=== PATIENT | female | born 1930 | race Caucasian/White ===

== ENCOUNTER 2017-07-19 12:21 | Inpatient (IN) | payer MEDICAID ==
[~2017-07-19] VITALS: Ht 157.5 cm; Wt 85.7 kg
[2017-07-19 12:42] VITALS: BP 143/84
--- NOTE | 2017-07-19 12:53 | NUR ---
Patient to bed 7 at this time by EMS.
[2017-07-19] MEDS ORDERED: MOM PO (12:54)
[2017-07-19] MEDS ORDERED: ACET-2869 PO (12:54)
[2017-07-19] MEDS ORDERED: MULT-1329 PO (12:54)
[2017-07-19] MEDS ORDERED: SENN-89 PO (12:54)
[2017-07-19] MEDS ORDERED: ACET-2208 PO (12:54)
[2017-07-19] MEDS ORDERED: NUTR30LI5 PO (12:54)
[2017-07-19] MEDS ORDERED: LEVO0.124 PO (12:54)
--- NOTE | 2017-07-19 12:54 | NUR ---
PATIENT PRESENTS TO ED WITH S/P FALL X2 DAYS AGO [place]ANN[place]. BILAT. HIP XR DONE IN THE FACILITY SHOWING RT. HIP DISLOCATION. ERMD MADE AWARE. LT. HIP WITH PROSTHESIS. HX OF [place],DEMENTIA,HYPOTHYROIDSM.DENIES N/V/D; SKIN IS PINK/WARM/DRY; AAOX4 WITH EVEN AND STEADY GAIT; LUNGS CLEAR BL; HR EVEN AND REGULAR; PT DENIES ANY FEVER, CP, SOB, OR COUGH AT THIS TIME; PATIENT STATES PAIN OF 8/10 AT THIS TIME;PATIENT POSITIONED FOR COMFORT;BEDRAILS UP X2; BED DOWN.ALL MONITORS IN PLACED; ER MD MADE AWARE OF PT STATUS.
--- NOTE | 2017-07-19 12:59 | NUR ---
PATIENT TAKEN TO XRAY VIA GURNEY AT THIS TIME.
[2017-07-19] MEDS ORDERED: PROPOFOL 200 MG/20 ML VIAL IV ONE (13:45)
--- NOTE | 2017-07-19 14:40 | NUR ---
RT AT BEDSIDE.
--- NOTE | 2017-07-19 14:50 | NUR ---
PROPOFOL WAS ADMINISTERED;PT AWAKE;RT/RN/CHARGE NURSE AND ERMD AT BEDSIDE;
--- NOTE | 2017-07-19 14:52 | NUR ---
PT WAS SEDATED;CLOSED REDUCTION OF RT HIP WAS DONE BY DR UGALDE;ALL MONITORS IN PLACED;NO ACUTE RESPIRATORY DISTRESS NOTED;
--- NOTE | 2017-07-19 14:55 | NUR ---
PROCEDURE WAS DONE;NO ACUTE DISTRESS NOTED;PT TOLERATED WELL PROCEDURE;WILL CONTINUE TO MONITOR PT.
--- NOTE | 2017-07-19 15:00 | NUR ---
PT FULLY AWAKE AND TALKING;VSS;WILL CONTINUE TO MONITOR PT.
[2017-07-19] MEDS ORDERED: MORPHINE SULFATE 2 MG/ML SYR IVP ONE ×2 (15:40→16:50)
[2017-07-19] MEDS ORDERED: ONDANSETRON 4 MG/2 ML VIAL IVP ONE (15:40)
--- NOTE | 2017-07-19 15:45 | NUR ---
PT SITTING ON BED;NO ACUTE DISTRESS NOTED;WILL CONTINUE TO MONITOR PT.
--- NOTE | 2017-07-19 16:22 | NUR ---
WENT TO XRAY ACCOMPANIED BY TECH.
--- NOTE | 2017-07-19 16:30 | NUR ---
UNUSED PROPOFOL 50 MG FROM 100 MG ORDER FROM SYRINGE WASTED.WITNESSED BY RONAL GARCIA RN
--- NOTE | 2017-07-19 16:41 | NUR ---
BACK FROM XR
--- NOTE | 2017-07-19 17:04 | NUR ---
MEDICATED FOR LT.HIP PAIN. CONTINUE TO MONITOR
[2017-07-19 17:28] LABS: BASOPHILS # (AUTO) 0.2 K/uL (0.00-0.22); BASOPHILS % (AUTO) 2.8 % (0.0-2.0); EOSINOPHILS % (AUTO) 0.6 % (0.0-4.0); HEMATOCRIT 37.5 % (36-48); HEMOGLOBIN 12.1 g/dL (12.0-16.0); LYMPHOCYTES # (AUTO) 1.9 K/uL (2.5-16.5); LYMPHOCYTES % (AUTO) 28.5 % (20.5-51.1); MEAN CORPUSCULAR HEMOGLOBIN 28 pg (27-31); MEAN CORPUSCULAR HGB CONC 32 g/dL (33-37); MEAN CORPUSCULAR VOLUME 86 fL (80-94); MONOCYTES # (AUTO) 0.8 K/uL (0.8-1.0); MONOCYTES % (AUTO) 11.8 % (1.7-9.3); NEUTROPHILS # (AUTO) 3.8 K/uL (1.8-7.7); NEUTROPHILS % (AUTO) 56.3 % (42.2-75.2); PLATELET COUNT (AUTO) 300 K/uL (140-450); RED BLOOD CELL COUNT(AUTO) 4.38 MIL/uL (4.20-5.40); RED CELL DISTRIBUTION WIDTH 14.9 % (11.6-13.7); WHITE BLOOD COUNT (AUTO) 6.7 K/uL (4.8-10.8)
--- NOTE | 2017-07-19 17:46 | NUR ---
Patient will be admitted to care of DR TAN. Admited to [facility]. Will go to room 122 B. Belongings list completed. Report to ROMELIA NOONAN.
[2017-07-19 17:50] LABS: PROTHROMBIN TIME 10.8 secs (10.8-13.4)
[2017-07-19] MEDS ORDERED: MORPHINE SULFATE 2 MG/ML SYR IVP PRN ×3 (17:55→23:00)
[2017-07-19 18:00] LABS: CARBON DIOXIDE 28.2 mmol/L (21-32); CHLORIDE 106 mmol/L (98-107); CREATININE 0.8 mg/dL (0.6-1.3); GLUCOSE 96 mg/dL (74-106); POTASSIUM 4.2 mmol/L (3.5-5.1); SODIUM SERUM 142 mmol/L (136-145); UREA NITROGEN, BLOOD 16 mg/dL (7-18)
[2017-07-19 18:05] LABS: ASPARTATE AMINOTRANSFERASE 18 U/L (15-37); TOTAL BILIRUBIN 0.3 mg/dL (0.0-1.0)
[2017-07-19 18:20] VITALS: BP 142/100
--- NOTE | 2017-07-19 18:20 | NUR ---
PATIENT ADMITTED TO THE UNIT FROM ER. PATIENT AWAKE AND ALERT. PATIENT IS COLOMBIAN SPEAKING ONLY. PATIENT C/O RIGHT ABDOMINAL PAIN AND LEFT LEG PAIN. WILL MEDICATE. PATIENT ON 2L O2. O2 SAT 97%. SKIN IS INTACT. BED LOWERED WITH CALL LIGHT WITHIN REACH. WILL CONTINUE TO MONITOR
--- NOTE | 2017-07-19 19:26 | NUR ---
PT REPORT GIVEN AT BEDSIDE. PT ENDORSED TO THE NEXT SHIFT. PT IN STABLE CONDITION.
--- NOTE | 2017-07-19 19:27 | NUR ---
RECEIVED HANDOFF REPORT FROM AM RN. PATIENT AWAKE IN BED. PATIENT REPORTS PAIN. WILL MEDICATE ORDERED. IV SITE PATENT AND INTACT. PATIENT ON 2L NC. CALL LIGHT WITHIN REACH. WILL CONTINUE TO MONITOR.
--- NOTE | 2017-07-19 20:45 | NUR ---
PATIENT REPORTS PAIN. MD AWARE. PATIENT TELUGU SPEAKING. USED [employer] FOR TELUGU SPEAKING AROMATHERAPIST #[id number], TO OBTAIN MEDICAL HISTORY FOR ADMISSION. PATIENT REFUSED TO COOPERATE. CALLED PATIENT'S DAUGHTER FOR MEDICAL HISTORY. PATIENT A&OX3. NO SIGNS OR SYMPTOMS OF ACUTE DISTRESS NOTED. CALL LIGHT WITHIN REACH. WILL CONTINUE TO MONITOR.
[2017-07-19] MEDS: MORPHINE SULFATE 2 MG/ML SYR IVP PRN (23:02)
--- NOTE | 2017-07-19 23:02 | NUR ---
PATIENT MEDICATED PER MD. NO SIGNS OR SYMPTOMS OF ACUTE DISTRESS NOTED. CALL LIGHT WITHIN REACH. WILL CONTINUE TO MONITOR.
--- NOTE | 2017-07-20 00:10 | NUR ---
PATIENT RESTING IN BED. PATIENT DENIES PAIN. NO SIGNS OR SYMPTOMS OF ACUTE DISTRESS NOTED. CALL LIGHT WITHIN REACH. WILL CONTINUE TO MONITOR.
--- NOTE | 2017-07-20 02:44 | NUR ---
PATIENT RESTING IN BED. NO SIGNS OR SYMPTOMS OF ACUTE DISTRESS NOTED. CALL LIGHT WITHIN REACH. WILL CONTINUE TO MONITOR.
--- NOTE | 2017-07-20 05:01 | NUR ---
PATIENT RESTING IN BED. NO SIGNS OR SYMPTOMS OF ACUTE DISTRESS NOTED. CALL LIGHT WITHIN REACH. WILL CONTINUE TO MONITOR.
[2017-07-20] MEDS: LEVOTHYROXINE 0.075 MG TAB PO SCH (06:33)
[2017-07-20] MEDS: MORPHINE SULFATE 2 MG/ML SYR IVP PRN (06:36)
--- NOTE | 2017-07-20 06:44 | NUR ---
PATIENT STATES PAIN IN ABDOMEN AND LEFT HIP. CALLED MD TO NOTIFY OF NEW ABDOMINAL PAIN. PATIENTS VITAL SIGNS STABLE. BREATHING NON LABORED, AND SYMMETRICAL. NO SIGNS OR SYMPTOMS OF ACUTE DISTRESS NOTED. CALL LIGHT WITHIN REACH. WILL CONTINUE TO MONITOR.
--- NOTE | 2017-07-20 07:19 | NUR ---
ENDORSED PLAN OF CARE TO AM RN. PATIENT IN STABLE CONDITION. NO SIGNS OR SYMPTOMS OF ACUTE DISTRESS NOTED. SAFETY MEASURES ENSURED. CALL LIGHT WITHIN REACH.
--- NOTE | 2017-07-20 07:20 | NUR ---
RECEIVED CARE OF PT FROM SURGICAL ORDERLY NURSE AT BEDSIDE. PT IS A&OX2. PT HAS IV ON R AC 20 G SL INTACT. PT IS IN NO DISTRESS AT THIS TIME. ON NC 4L, O2 SAT 95%. CALL LIGHT WITHIN REACH. WILL CONTINUE TO MONITOR.
[2017-07-20 08:00] VITALS: BP 113/74
--- NOTE | 2017-07-20 09:00 | NUR ---
PT IS IN STABLE CONDITION. NO COMPLAINTS AT THIS TIME. CALL LIGHT WITHIN REACH. WILL CONTINUE TO MONITOR.
--- NOTE | 2017-07-20 09:23 | NUR ---
PATIENT HAS BEEN SCREENED AND CATEGORIZED MODERATE NUTRITION RISK. PATIENT WILL BE SEEN WITHIN 3-5 DAYS OF ADMISSION. 07/22/17-07/24/[address]
[2017-07-20] MEDS: PANTOPRAZOLE 40 MG TABEC PO SCH (09:47)
[2017-07-20] MEDS: ENOXAPARIN 40 MG/0.4 ML SYR SUBQ SCH (09:48)
--- NOTE | 2017-07-20 11:45 | NUR ---
PT IS EATING LUNCH IN BED. NO COMPLAINTS AT THIS TIME. CALL LIGHT WITHIN REACH. WILL CONTINUE TO MONITOR.
--- NOTE | 2017-07-20 13:30 | NUR ---
PT'S FAMILY VISITING AT BEDSIDE. PT IS RESTING COMFORTABLY IN BED. CALL LIGHT WITHIN REACH. WILL CONTINUE TO MONITOR.
--- NOTE | 2017-07-20 14:04 | NUR ---
CM NOTE PER KEMAR, BLACKJACK SUPERVISOR, NO REVIEW IS NEEDED. INSURANCE WILL CALL WHEN REQUESTED.
[2017-07-20] MEDS: HYDROcodone/APAP 10/325 MG 1 TAB TAB PO PRN (15:12)
--- NOTE | 2017-07-20 15:12 | NUR ---
PT C/O PAIN. MEDICATED WITH NORCO. PT TOLERATED WELL. CALL LIGHT WITHIN REACH. WILL CONTINUE TO MONITOR.
[2017-07-20 16:00] VITALS: BP 106/69
--- NOTE | 2017-07-20 17:50 | NUR ---
DAUGHTER IS VISITING AT BEDSIDE. PT IN STABLE CONDITION. CALL LIGHT WITHIN REACH. WILL CONTINUE TO MONITOR.
--- NOTE | 2017-07-20 19:29 | NUR ---
ENDORSED CARE OF PT TO LOSS PREVENTION/SAFETY DISTRICT MANAGER NURSE AT BEDSIDE. PT IN STABLE CONDITION.
--- NOTE | 2017-07-20 19:30 | NUR ---
RECEIVED HANDOFF REPORT FROM AM RN. PATIENT RESTING UPON ENTRY. PATIENT A&OX3. IV SITE PATENT AND INTACT. PATIENT DENIES PAIN. NO SIGNS OR SYMPTOMS OF ACUTE DISTRESS NOTED. CALL LIGHT WITHIN REACH. WILL CONTINUE TO MONITOR.
--- NOTE | 2017-07-20 21:52 | NUR ---
PATIENT RESTING IN BED. PATIENT DENIES PAIN. NO SIGNS OR SYMPTOMS OF ACUTE DISTRESS NOTED. CALL LIGHT WITHIN REACH. WILL CONTINUE TO MONITOR.
[2017-07-21] VITALS: BP 104/51
[2017-07-21] MEDS: HYDROcodone/APAP 10/325 MG 1 TAB TAB PO PRN ×2 (01:02→21:10)
[2017-07-21] MEDS: MORPHINE SULFATE 4 MG/ML SYR ONE ×2 (01:24→01:26)
--- NOTE | 2017-07-21 01:24 | NUR ---
PATIENT REPORTS PAIN IN STOMACH. MEDICATED WITH NORCO DUE TO LOW BLOOD PRESSURE. POULTRY PICKER ADMINISTERED MORPHINE ORDERED. WILL CONTINUE TO MONITOR.
--- NOTE | 2017-07-21 04:40 | NUR ---
PATIENT RESTING IN BED. PATIENT DENIES PAIN. NO SIGNS OR SYMPTOMS OF ACUTE DISTRESS NOTED. CALL LIGHT WITHIN REACH. WILL CONTINUE TO MONITOR.
[2017-07-21 06:43] LABS: ALBUMIN 3.2 g/dL (3.4-5.0); ANION GAP 10.4 (8-16); ASPARTATE AMINOTRANSFERASE 166 U/L (15-37); CHLORIDE 103 mmol/L (98-107); CREATININE 0.8 mg/dL (0.6-1.3); GLUCOSE 97 mg/dL (74-106); POTASSIUM 4.4 mmol/L (3.5-5.1); SODIUM SERUM 139 mmol/L (136-145); TOTAL BILIRUBIN 0.4 mg/dL (0.0-1.0); UREA NITROGEN, BLOOD 10 mg/dL (7-18)
[2017-07-21] MEDS: LEVOTHYROXINE 0.075 MG TAB PO SCH (06:44)
[2017-07-21 07:12] LABS: HEMOGLOBIN 13.2 g/dL (12.0-16.0); MEAN CORPUSCULAR HEMOGLOBIN 28 pg (27-31); MEAN CORPUSCULAR HGB CONC 32 g/dL (33-37); MEAN CORPUSCULAR VOLUME 86 fL (80-94); PLATELET COUNT (AUTO) 243 K/uL (140-450); RED BLOOD CELL COUNT(AUTO) 4.76 MIL/uL (4.20-5.40); RED CELL DISTRIBUTION WIDTH 15.1 % (11.6-13.7); WHITE BLOOD COUNT (AUTO) 5.2 K/uL (4.8-10.8)
--- NOTE | 2017-07-21 07:36 | NUR ---
ENDORSED PLAN OF CARE TO AM RN. PATIENT IN STABLE CONDITION. PATIENT DENIES PAIN. NO SIGNS OR SYMPTOMS OF ACUTE DISTRESS NOTED. SAFETY MEASURES ENSURED. CALL LIGHT WITHIN REACH.
--- NOTE | 2017-07-21 07:37 | NUR ---
RECEIVED PT FROM AIR QUALITY TECHNICIAN NURSE AT BEDSIDE. PT HAS IV ON R AC 20G SL. BED ALARM ON. PT IS A&OX2. NO COMPLAINTS AT THIS TIME. CALL LIGHT WITHIN REACH. WILL CONTINUE TO MONITOR.
[2017-07-21 07:39] LABS: EOSINOPHILS % (MANUAL) 13 % (0-4); LYMPHOCYTES % (MANUAL) 31 % (20-46)
[2017-07-21 08:00] VITALS: BP 142/75
[2017-07-21] MEDS: PANTOPRAZOLE 40 MG TABEC PO SCH (09:43)
[2017-07-21] MEDS: ENOXAPARIN 40 MG/0.4 ML SYR SUBQ SCH (09:44)
[2017-07-21] MEDS: MORPHINE SULFATE 4 MG/ML SYR IVP PRN ×2 (09:44→16:52)
--- NOTE | 2017-07-21 09:44 | NUR ---
PT IS C/O PAIN. ADMINISTERED MORPHINE. TOLERATED WELL. CALL LIGHT WITHIN REACH. WILL CONTINUE TO MONITOR.
--- NOTE | 2017-07-21 11:45 | NUR ---
SPOKE TO DR. TAN REGARDING PT'S CONCERN THAT SHE HAS NOT HAD BM FOR [address] TAN STATED THAT DR. Socrates URENA IS COMING TO SEE PT AROUND NOON TIME. WILL CHECK WITH DR. Socrates URENA AND SEE WHAT HE WANTS TO DO.
[2017-07-21] MEDS: LACTULOSE 20 GM/30 ML UDC PO SCH ×3 (12:55→21:10)
[2017-07-21] MEDS: SENNA 8.6 MG TAB PO SCH ×2 (12:56→16:25)
--- NOTE | 2017-07-21 13:00 | NUR ---
CALLED DAUGHTER OF PT REGARDING CONSENT FOR CT WITH CONTRAST. LEFT A MESSAGE.
--- NOTE | 2017-07-21 14:10 | NUR ---
CALLED DAUGHTER REGARDING CONSENT AGAIN. NOT ANSWERING AT THIS TIME.
--- NOTE | 2017-07-21 14:39 | NUR ---
CM NOTE INITIAL REVIEW FAXED TO [facility] / FAX# [phone], ATTN: JAMIL #[phone]
--- NOTE | 2017-07-21 15:20 | NUR ---
ALBA JONES TOOK PT FOR CT ABD/PELVIS. PT IN STABLE CONDITION.
[2017-07-21 16:13] VITALS: BP 127/66
--- NOTE | 2017-07-21 17:00 | NUR ---
PT IS RESTING IN BED. NO DISTRESS NOTED. CALL LIGHT WITHIN REACH. WILL CONTINUE TO MONITOR.
--- NOTE | 2017-07-21 19:25 | NUR ---
ENDORSED CARE OF PT TO INTERNATIONAL PROJECT MANAGER NURSE AT BEDSIDE. PT IN STABLE CONDITION.
--- NOTE | 2017-07-21 19:27 | NUR ---
RECEIVED PT FROM BOUCHRA LEÓN PT IS AAOX2 WITH HX DEMENTIA BEDBOUND HL ON RT AC PATENT COOPERTIVE TO FOLLOW DR ORDER REPOSITIONED INITIAL ASSESSMENT DONE
[2017-07-21 20:00] VITALS: BP 126/100
--- NOTE | 2017-07-21 22:10 | NUR ---
AFTER PAIN MEDIC GIVEN PT SLEEP QUIET NOT DISTRESS NOTED
[2017-07-22] VITALS: BP 104/61
--- NOTE | 2017-07-22 | NUR ---
REPOSITIONED LINEN CHANGED REMAIN STABLE NOT DISTRESS NOTED
[2017-07-22] MEDS: MORPHINE SULFATE 4 MG/ML SYR IVP PRN (02:10)
--- NOTE | 2017-07-22 02:38 | NUR ---
AFTER PAIN MEDIC GIVEN PT SLEEP QUIET, NOT DISTESS NOTED REPOSITIONED Q2H
--- NOTE | 2017-07-22 04:00 | NUR ---
SPONGE BATH GIVEN LINEN CHANGED NOT DISTRESS NOTED NOT PAIN NOTED,
--- NOTE | 2017-07-22 05:11 | NUR ---
REPOSITIONED Q2H HL PATENT ON RT AC, NOT SIGNS OF PAIN NOTED,
[2017-07-22] MEDS: LEVOTHYROXINE 0.075 MG TAB PO SCH (06:19)
--- NOTE | 2017-07-22 06:22 | NUR ---
PT IS ASSISTED LINEN CHANGED COOPERATIVE
[2017-07-22 06:58] LABS: ALBUMIN 3.1 g/dL (3.4-5.0); ANION GAP 9.9 (8-16); ASPARTATE AMINOTRANSFERASE 69 U/L (15-37); CARBON DIOXIDE 31.7 mmol/L (21-32); CHLORIDE 103 mmol/L (98-107); CREATININE 0.8 mg/dL (0.6-1.3); GLUCOSE 101 mg/dL (74-106); POTASSIUM 3.6 mmol/L (3.5-5.1); SODIUM SERUM 141 mmol/L (136-145); TOTAL BILIRUBIN 0.4 mg/dL (0.0-1.0); UREA NITROGEN, BLOOD 8 mg/dL (7-18)
--- NOTE | 2017-07-22 08:30 | NUR ---
Patient having a considerable amount of abd pain right upper quad, and med student is going to do abd ultrasound this morning. Rajendra Fernandez RN
[2017-07-22 08:39] LABS: HEPATITIS A ANTIBODY IGM Negative (Negative); HEPATITIS B CORE AB TOTAL Negative (Negative); HEPATITIS B SURFACE AB Reactive (.); HEPATITIS B SURFACE ANTIGEN Negative (Negative)
[2017-07-22 09:00] VITALS: BP 110/73
[2017-07-22] MEDS: LACTULOSE 20 GM/30 ML UDC PO SCH ×4 (11:06→22:39)
[2017-07-22] MEDS: PANTOPRAZOLE 40 MG TABEC PO SCH (11:07)
[2017-07-22] MEDS: SENNA 8.6 MG TAB PO SCH ×3 (11:08→18:00)
[2017-07-22] MEDS: ENOXAPARIN 40 MG/0.4 ML SYR SUBQ SCH (11:13)
[2017-07-22] MEDS ORDERED: MAGNESIUM CITRATE 300 ML BTL PO SCH (12:15)
--- NOTE | 2017-07-22 12:30 | NUR ---
Patient in bed with eyes closed, I did sit her up to take PO meds, and she did not co abd pain. She took her meds without. Rajendra Fernandez RN
--- NOTE | 2017-07-22 15:48 | NUR ---
FAXED CONCURRENT REVIEW TO [facility] [phone] PHONE JAMIL [phone] auth [id number]
[2017-07-22 16:00] VITALS: BP 144/93
--- NOTE | 2017-07-22 18:30 | NUR ---
Patient received mag citrate 300ml, and receiving lactulose 30ml 3 times per day. She had a second large bowel movement this late day, and cleaned and linens changed. Rajendra Fernandez RN
--- NOTE | 2017-07-22 19:00 | NUR ---
RECEIVED PT FROM GROUP HOME PARAPROFESSIONAL PT AAOX2 FOLLOW COMMANDS HL ON RT AC PATENT GARCIA CATHDRAINING WELL YELLOW URINE , PTREPOSITIONED INITIAL ASSESSMENT DONE
[2017-07-22 20:00] VITALS: BP 137/93
[2017-07-22] MEDS ORDERED: AMITRIPTYLINE 25 MG TAB PO SCH (21:00)
--- NOTE | 2017-07-22 22:00 | NUR ---
PT HAD A BIG BM LIQUID NO MORE COMPLAINTS OF CONSTIPATION
[2017-07-23] VITALS: BP 120/100
--- NOTE | 2017-07-23 01:00 | NUR ---
PT REMAIN STABLE SLEEPING WELL NOT DISTRESS NOTED REPOSITIONED Q2H
[2017-07-23 04:00] VITALS: BP 119/84
--- NOTE | 2017-07-23 04:00 | NUR ---
PT HAS BEEN SLEEPING WELL , REPOSITIONED Q2H NOT DISTRESS NOTED
[2017-07-23] MEDS: HYDROcodone/APAP 10/325 MG 1 TAB TAB PO PRN (05:51)
[2017-07-23] MEDS: LEVOTHYROXINE 0.075 MG TAB PO SCH (05:52)
[2017-07-23 06:26] LABS: HEMATOCRIT 41.9 % (36-48); HEMOGLOBIN 13.4 g/dL (12.0-16.0); MEAN CORPUSCULAR HEMOGLOBIN 27 pg (27-31); MEAN CORPUSCULAR HGB CONC 32 g/dL (33-37); MEAN CORPUSCULAR VOLUME 86 fL (80-94); PLATELET COUNT (AUTO) 302 K/uL (140-450); RED BLOOD CELL COUNT(AUTO) 4.88 MIL/uL (4.20-5.40); RED CELL DISTRIBUTION WIDTH 14.9 % (11.6-13.7); WHITE BLOOD COUNT (AUTO) 7.7 K/uL (4.8-10.8)
--- NOTE | 2017-07-23 06:31 | NUR ---
PT REPOSITIONED AND AFTER PAIN MEDIC GIVEN PT IS SLEEPING WELL NOT DISTRESS NOTED
[2017-07-23 06:55] LABS: ALBUMIN 3.3 g/dL (3.4-5.0); ASPARTATE AMINOTRANSFERASE 36 U/L (15-37); CARBON DIOXIDE 26.3 mmol/L (21-32); CHLORIDE 104 mmol/L (98-107); CREATININE 0.9 mg/dL (0.6-1.3); GLUCOSE 112 mg/dL (74-106); POTASSIUM 3.3 mmol/L (3.5-5.1); SODIUM SERUM 142 mmol/L (136-145); TOTAL BILIRUBIN 0.6 mg/dL (0.0-1.0); UREA NITROGEN, BLOOD 9 mg/dL (7-18)
[2017-07-23 07:02] LABS: LYMPHOCYTES % (MANUAL) 33 % (20-46); MONOCYTES % (MANUAL) 13 % (5-12)
--- NOTE | 2017-07-23 07:10 | NUR ---
RECEIVED REPORT FROM ACCOUNTS PAYABLES CLERK NURSE, PT IS SLEEPING IN BED BUT EASILY AWAKEN, PT IS A/OX2, BEDREST, IV IS ON THE RIGHT AC, PATENT, INTACT, FLUSHING WELL, NO S/S OF RESPIRATORY DISTRESS OR DISCOMFORT NOTED, DISCUSSED PLAN OF CARE WITH PT, PT VERBALIZED UNDERSTANDING, SAFETY/FALL PRECAUTIONS ARE IN PLACE, CALL LIGHT WITHIN REACH, WILL CONTINUE TO MONITOR.
[2017-07-23 08:00] VITALS: BP 107/72
[2017-07-23] MEDS: PANTOPRAZOLE 40 MG TABEC PO SCH (08:42)
[2017-07-23] MEDS: SENNA 8.6 MG TAB PO SCH ×2 (08:42→13:00)
[2017-07-23] MEDS: LACTULOSE 20 GM/30 ML UDC PO SCH ×2 (08:43→13:00)
--- NOTE | 2017-07-23 08:43 | NUR ---
PT REFUSED LACTULOSE, PT STATED SHE HAD DIARRHEA LAST NIGHT.
[2017-07-23] MEDS ORDERED: POTASSIUM CHLORIDE 20% 40 MEQ/15 ML UDC PO SCH (09:15)
--- NOTE | 2017-07-23 10:16 | NUR ---
DUE MEDICATION GIVEN, PT TOLERATED WELL, CALL LIGHT IS WITHIN REACH.
--- NOTE | 2017-07-23 11:50 | NUR ---
CALLED [facility] AND THEIR NOT ABLE TO GET PATIENT DUE TO INSURANCE. CALLED [employer] AND SPOKE TO ALEKSANDR # [phone], CARGO TRIMMER TIME WILL BE IN 1-4 HOURS WINDOW.
--- NOTE | 2017-07-23 11:58 | NUR ---
CHRISTIANA FROM [facility] CALLED AND HE SAID TRANSPORTATION WILL BE [facility], STAMP PAD FINISHER TIME WILL BE 1330. NAHUM LEÓN MADE AWARE.
--- NOTE | 2017-07-23 12:20 | NUR ---
CALLED ALMA DELIA HERNANDEZ AT [phone] AND GAVE REPORT TO ROMELIA OLVERA.
--- NOTE | 2017-07-23 12:30 | NUR ---
SPOKE TO THE PATIENT DAUGHTER ALTAGRACIA, I LET HER KNOW THE PATIENT WAS BEING DISCHARGED TODAY WAS GOING TO BE TRANSFERRED BACK TO THE [facility].
--- NOTE | 2017-07-23 13:00 | NUR ---
INFORMED PT SHE WOULD BE TRANSFERRING BACK TO THE [facility] TODAY AND THAT HER DAUGHTER WAS MADE AWARE, PT VERBALIZED UNDERSTANDING.
--- NOTE | 2017-07-23 14:20 | NUR ---
DISCHARGE INSTRUCTIONS GIVEN, ID WRIST BAND REMOVED, IV REMOVED, CATHETER TIP INTACT, PT STABLE UPON DISCHARGE ACCOMPANIED BY TRANSPORT ([facility]).
== END 2017-07-23 14:20 | disposition home or self-care (01) | DRG 349 ==
LOC: MED 12:21 → MTU 18:08 → OBSVTOIN 07-20 10:42
PROVIDERS: ADMIT Family Medicine; ATTEND Family Medicine
PROC: 3E0U3BZ Introduction of Anesthetic Agent into Joints, Percutaneous Approach (ICD-10-PCS; principal; 2017-07-19)
DX: T84.020A Dislocation of internal right hip prosthesis, initial encounter (principal); F01.50 Vascular dementia, unspecified severity, without behavioral disturbance, psychotic disturbance, mood disturbance, and anxiety; I73.9 Peripheral vascular disease, unspecified; F11.20 Opioid dependence, uncomplicated; M24.451 Recurrent dislocation, right hip; I10 Essential (primary) hypertension; E03.9 Hypothyroidism, unspecified; M81.0 Age-related osteoporosis without current pathological fracture; G89.29 Other chronic pain; K59.03 Drug induced constipation; Z96.643 Presence of artificial hip joint, bilateral; M19.90 Unspecified osteoarthritis, unspecified site; R74.8 Abnormal levels of other serum enzymes; R74.0 Nonspecific elevation of levels of transaminase and lactic acid dehydrogenase [LDH]; R79.89 Other specified abnormal findings of blood chemistry; R94.5 Abnormal results of liver function studies; K80.50 Calculus of bile duct without cholangitis or cholecystitis without obstruction; Y79.2 Prosthetic and other implants, materials and accessory orthopedic devices associated with adverse incidents; W18.30XA Fall on same level, unspecified, initial encounter; T40.605A Adverse effect of unspecified narcotics, initial encounter; Z88.0 Allergy status to penicillin; Z99.3 Dependence on wheelchair; Z90.49 Acquired absence of other specified parts of digestive tract; Y92.129 Unspecified place in nursing home as the place of occurrence of the external cause; Y93.89 Activity, other specified; Y99.8 Other external cause status; I25.2 Old myocardial infarction; Z74.01 Bed confinement status
CPT/HCPCS: 27250; 96374; 96375; 99291; G0378; 36415; 72170; 73502; 73590; 74000; 76700; 80053; 83690; 85025; 85610; 85730; 86704; 86706; 86708; 86709; 86803; 87081; 87340; 93005; J1650; J2270; J2405; J2704; J7030; Q0092; Q9967